=== PATIENT | male | born 1960 | race Caucasian/White ===

== ENCOUNTER 2021-12-02 14:09 | Emergency (ER) | payer MEDICARE, BC, SELFPAY ==
--- NOTE | ~2021-12-02 | XR_ITS ---
EXAMINATION: XR sacrum coccyx min 2V DATE: 12/02/2021 14:59 INDICATION: Tailbone pain post fall TECHNIQUE: AP, angled AP and lateral views of the sacrum and coccyx were obtained. COMPARISON: None. FINDINGS: Alignment is normal. Sacral arches appear intact. Age-indeterminate L4 burst fracture with two thirds central vertebral body height loss and with 3 mm retropulsion along the cephalad aspect of the poste rior wall. Mild osteoarthritis at the bilateral acromioclavicular joints. Atherosclerotic calcificati ons and a few phleboliths in the pelvis. IMPRESSION: 1. Age-indeterminate L4 burst fracture with 2 to central vertebral body height loss and 3 mm retropul edward. 2. Mild bilateral sacral iliac osteoarthritis with no evident acute osseous abnormality in the sacrum or coccyx. Reviewed, dictated and finalized at location A. IMPRESSION: 1. Age-indeterminate L4 burst fracture with 2 to central vertebral body height loss and 3 mm retropulsion. 2. Mild bilateral sacral iliac osteoarthritis with no evident acute osseous abn ormality in the sacrum or coccyx.
[2021-12-02 14:24] VITALS: BP 148/88; PULSE 80; RESP 16; TEMP 36.9; O2SAT 100
--- NOTE | 2021-12-02 14:57 | ED.BACK ---
HPI - Back Pain/Injury General Chief Complaint: Back Pain/Injury Stated Complaint: Fall Injury/Low Back Time Seen by Provider: 12/02/21 15:06 Source: patient Mode of arrival: wheelchair Limitations: no limitations History of Present Illness HPI Narrative: 60-year-old male presented for complaint of tailbone pain and mid low back pain since injury yesterday. He states he tried to change a light bulb when he fell backwards from ground level, landing on the tailbone on hardwood floor. He denies hitting his head or LOC, dizziness, denies numbness, tingling, or weakness of the lower extremities. Pain does not radiate to the lower extremities. Related Data Home Medications Medication Instructions Recorded Confirmed gabapentin 300 mg capsule 300 mg PO DAILY 12/02/21 12/02/21 hydrocodone 5 mg-acetaminophen 325 1 tablet PO Q6-8H PRN Pain 12/02/21 12/02/21 mg tablet labetalol 100 mg tablet 100 mg PO DAILY 12/02/21 12/02/21 omeprazole 20 mg capsule,delayed 20 mg PO DAILY 12/02/21 12/02/21 release rivaroxaban 20 mg tablet (Xarelto) 20 mg PO DAILY 12/02/21 12/02/21 Allergies Allergy/AdvReac Type Severity Reaction Status Date / Time No Known Allergies Allergy Verified 12/02/21 14:34 Review of Systems Review of Systems: CONSTITUTIONAL: Denies body aches, fever, chills EYES: Denies visual changes CARDIOVASCULAR: Denies chest pain, palpitations, or edema. RESPIRATORY: Denies cough or dyspnea. GASTROINTESTINAL: Denies abdominal pain, nausea, vomiting, or diarrhea. SKIN: Denies rash, itching, or wounds. MUSCULOSKELETAL: reports back pain NEUROLOGIC: Denies headache, numbness, tingling, or weakness. All systems reviewed & are unremarkable except as noted in HPI and below PMFSH Comments At time of signature, I have reviewed and agree with nursing past medical, surgical, social and family history unless otherwise noted. Please see nursing chart for further information. There is no relevant family history pertinent to the presenting complaint Exam Narrative: GENERAL: chronically ill appearing, frail, thin, no acute distress HEAD: Normocephalic, atraumatic. EYES: conjunctivae clear NECK: Supple. full ROM CHEST: Speaks in full sentences. No respiratory distress. HEART: Regular rate and rhythm. Normal and equal peripheral pulses. MUSC: Vertebral point tenderness to L4 area, no bruising. BLEs with normal strength and sensation, normal range of motion. No open wounds or obvious deformity; pulse palpable and equal bilaterally, skin warm, dry, pink. Capillary refill less than 3 seconds. Gait unsteady. Wheelchair. SKIN: Warm, dry, no rash. NEURO: Alert and oriented x3. Slow to respond Course Course Emergency Course: Patient is aware of diagnosis, understands and agrees to treatment plan. Anticipatory guidance given. Patient agrees to follow-up as directed and is aware of reasons to seek care at the emergency department. Portions of this record may have been created with voice recognition software Level of Care: Express Care Visit Vital Signs Vital signs: Vital Signs Temperature 98.4 F 12/02/21 14:24 Pulse Rate 80 12/02/21 14:24 Respiratory Rate 16 12/02/21 14:24 Blood Pressure 148/88 H 12/02/21 14:24 Pulse Oximetry 100 12/02/21 14:24 Oxygen Delivery Room Air 12/02/21 14:24 Temperature 98.4 F 12/02/21 14:24 Pulse Rate 80 12/02/21 14:24 Respiratory Rate 16 12/02/21 14:24 Blood Pressure 148/88 H 12/02/21 14:24 Pulse Oximetry 100 12/02/21 14:24 Oxygen Delivery Room Air 12/02/21 14:24 Reviewed Transfer Transfered to: [facility] Transportation: Other (private vehicle) Transfer rationale: Pt is agreeable to transfer. Requests transfer to [facility] via private vehicle. Risks of transportation reviewed with pt including injury, worsening of condition and . v/u. DTR will be driving pt; Report called to hospital, spoke with Marcie LOPEZ, Dr Phil de jesus
== END 2021-12-02 16:00 | disposition short-term general hospital (02) ==
PROVIDERS: Emergency Provider Nurse Practitioner Family; PCP Family Medicine
DX: S32.041A Stable burst fracture of fourth lumbar vertebra, initial encounter for closed fracture (principal); W18.30XA Fall on same level, unspecified, initial encounter; I10 Essential (primary) hypertension; K21.9 Gastro-esophageal reflux disease without esophagitis; Z85.118 Personal history of other malignant neoplasm of bronchus and lung; Z85.841 Personal history of malignant neoplasm of brain
CPT/HCPCS: 72220; 99213; G0463

== ENCOUNTER 2021-12-02 17:44 | Emergency (ER) | payer MEDICARE, BC, SELFPAY ==
--- NOTE | ~2021-12-02 | CT_ITS ---
EXAMINATION: CT lumbar spine wo con DATE: 12/02/2021 18:44 INDICATION: burst fracture L4 . TECHNIQUE: Computed tomography (CT) of the lumbar spine was performed without intravenous contrast. A utomated exposure control and iterative reconstruction technique were employed. The dose-length produ ct was 214.23 mGy-cm. COMPARISON: X-ray sacrum and coccyx, same date. FINDINGS: Spherical peripherally calcified mass in the right renal hilum. Punctate nonobstructive cliff culi at the left kidney. Atherosclerotic calcifications. Decreased bone mineral density. L4 vertebral body fracture, involving the superior endplate, anterior cortex, and posterior cortex, with minimal 2 mm retropulsion. No significant central canal stenosis. 5 nonrib-bearing lumbar-type vertebral bodi es. Pedicles intact. Normal vertebral body alignment. Vertebral body heights preserved. Disc spaces m aintained. Normal facets and posterior elements. IMPRESSION: Moderate L4 burst fracture with minimal retropulsion and no significant central canal stenosis. Calci fied right renal artery aneurysm. Reviewed, dictated and finalized at location K. IMPRESSION: Moderate L4 burst fracture with minimal retropulsion and no significant central canal stenosis. Calcified right renal artery aneurysm.
[2021-12-02 17:50] VITALS: BP 156/92; PULSE 78; RESP 16; TEMP 36.9; O2SAT 97
--- NOTE | 2021-12-02 18:03 | ED.BACK ---
HPI - Back Pain/Injury General Chief Complaint: Fall Stated Complaint: CAT scan Time Seen by Provider: 12/02/21 17:53 History of Present Illness HPI Narrative: Pt fell yesterday and landed hard on buttocks. Pt complains of pain across his low back and into his upper thighs bilaterally. Pt has peripheral neuropathy so always has numbness to his legs so hasn't noticed much different. Pt denies issues with his bladder or bowels. Pt seen at [facility] and had plain film x rays. Pt told to go to ER for more advanced imaging. Related Data Home Medications Medication Instructions Recorded Confirmed gabapentin 300 mg capsule 300 mg PO DAILY 12/02/21 12/02/21 hydrocodone 5 mg-acetaminophen 325 1 tablet PO Q6-8H PRN Pain 12/02/21 12/02/21 mg tablet labetalol 100 mg tablet 100 mg PO DAILY 12/02/21 12/02/21 omeprazole 20 mg capsule,delayed 20 mg PO DAILY 12/02/21 12/02/21 release rivaroxaban 20 mg tablet (Xarelto) 20 mg PO DAILY 12/02/21 12/02/21 Allergies Allergy/AdvReac Type Severity Reaction Status Date / Time No Known Allergies Allergy Verified 12/02/21 18:21 Review of Systems Review of Systems: All systems reviewed & are unremarkable except as noted in HPI and below Exam Const: General: healthy appearing Nutritional Appearance: well nourished Orientation/consciousness: patient oriented x3 Limitations: no limitations Eyes: EOM: EOMs intact bilaterally Neck: Neck: normal visual inspection and no lymphadenopathy Chest: Chest palpation & inspection: normal inspection of the chest and abnormal inspection of the chest Resp: Effort & Inspection: normal respiratory effort Auscultation: clear to auscultation bilaterally Cardio: Rate: regular rate Rhythm: regular rhythm GI: GI Palp: Yes Soft to palpation Auscultation: normal bowel sounds Back/Spine/Pelvis: Other: tender across low back to paolpation Skin: General skin exam: normal color Rashes: no rashes Wounds: no wounds Neuro: General: patient oriented x3, moves all extremities, no focal motor deficits and CN's II-XI intact bilaterally Speech: normal speech Gait exam (Neuro): Normal gait present (antalgic) Other: strength 5/5 lower extremities b/l Extrem: General: no clubbing, cyanosis or edema Psych: Mental Status: mental status grossly normal Affect: normal affect Attitude: cooperative Course Course Emergency Course: pt able to sit up and also able to ambulate with his cane. Pt says he feels much better and wants to go home. Vital Signs Vital signs: Vital Signs Temperature 98.5 F 12/02/21 17:50 Pulse Rate 78 12/02/21 17:50 Respiratory Rate 16 12/02/21 17:50 Blood Pressure 156/92 H 12/02/21 17:50 Pulse Oximetry 97 12/02/21 17:50 Oxygen Delivery Room Air 12/02/21 17:50 Temperature 98.5 F 12/02/21 17:50 Pulse Rate 78 12/02/21 17:50 Respiratory Rate 16 12/02/21 17:50 Blood Pressure 156/92 H 12/02/21 17:50 Pulse Oximetry 97 12/02/21 17:50 Oxygen Delivery Room Air 12/02/21 17:50 Discharge Plan Discharge Clinical Impression: Burst fracture of lumbar vertebra Patient Disposition: Home, Self-Care Condition: Improved Instructions: Antibiotic Form, Vertebroplasty (DC), Procedures for Compression Fractures of the Spine (DC) Prescriptions: New hydrocodone-acetaminophen 5-325 mg tablet 1 tablet PO Q4H PRN (Reason: pain) Qty: 14 0RF No Action hydrocodone-acetaminophen 5-325 mg tablet 1 tablet PO Q6-8H PRN (Reason: Pain) gabapentin 300 mg capsule 300 mg PO DAILY omeprazole 20 mg capsule,delayed release(DR/EC) 20 mg PO DAILY labetalol 100 mg tablet 100 mg PO DAILY Xarelto 20 mg tablet 20 mg PO DAILY Follow-up/Referrals: Harms,Samuel Sanchez M.D. [Primary Care Provider] -
--- NOTE | 2021-12-02 18:34 | PC.NURSE ---
PT IS IN CT AT THIS TIME. SISTER HAS STEPPED OUTSIDE TO MAKE CALLS.
[2021-12-02] MEDS: HYDROmorphone HCL INJ (*CRX) 2 MG/ML VIAL 1 MG IM (18:48)
[2021-12-02 19:25] VITALS: BP 142/86; PULSE 74; RESP 18; O2SAT 98
== END 2021-12-02 19:34 | disposition home or self-care (01) ==
PROVIDERS: Emergency Provider Emergency Medicine; PCP Family Medicine
DX: S32.001A Stable burst fracture of unspecified lumbar vertebra, initial encounter for closed fracture (principal); W19.XXXA Unspecified fall, initial encounter
CPT/HCPCS: 72131; 96372; 99284; J1170

== ENCOUNTER 2021-12-12 16:03 | Outpatient (CLI) | payer OTHER, BC, SELFPAY ==
--- NOTE | ~2021-12-12 | CT_ITS ---
EXAMINATION: CT brain wo con DATE: 12/12/2021 16:20 INDICATION: Altered mental status. Fall. TECHNIQUE: Computed tomography (CT) of the head was performed without intravenous contrast. The mA wa s adjusted according to patient size. Iterative reconstruction technique was employed. The dose-lengt h product was 605.33 mGy-cm. COMPARISON: None FINDINGS: There are old infarcts involving the bilateral basal ganglia. There is chronic encephalomal acia in the left occipital lobe with changes of overlying craniotomy. There are scattered areas of lo w attenuation in the cerebral white matter. There is no intracranial hemorrhage, acute infarction, or abnormal intracranial mass lesion. There is ex vacuo dilatation of left lateral ventricle. The orbit s are normal. There is mild mucosal thickening in the paranasal sinuses. There are bilateral mastoid effusions. IMPRESSION: 1. Old infarcts in the bilateral basal ganglia. Chronic encephalomalacia in left occipital lobe. 2. Extensive nonspecific cerebral white matter disease, which likely represents chronic small vessel ischemic disease. Reviewed, dictated and finalized at location A. IMPRESSION: 1. Old infarcts in the bilateral basal ganglia. Chronic encephalomalacia in lef t occipital lobe. 2. Extensive nonspecific cerebral white matter disease, which likely represents chronic small vessel ischemic disease.
== END 2021-12-12 16:04 | disposition home or self-care (01) ==
PROVIDERS: Visit Provider Internal Medicine
DX: Z91.81 History of falling (principal); Z86.73 Personal history of transient ischemic attack (TIA), and cerebral infarction without residual deficits; G93.89 Other specified disorders of brain; R90.82 White matter disease, unspecified
CPT/HCPCS: 70450

== ENCOUNTER 2021-12-15 13:32 | Inpatient (IN) | payer MEDICARE, BC, SELFPAY ==
--- NOTE | ~2021-12-15 | CT_ITS ---
EXAMINATION: CT brain wo con DATE: 12/15/2021 14:23 INDICATION: Acute mental status. Brain cancer. TECHNIQUE: Computed tomography (CT) of the head was performed without intravenous contrast. Sagittal and coronal reconstructions were performed. The mA was adjusted according to patient size. Iterative reconstruction technique was employed. The dose-length product was 681.00 mGy-cm. COMPARISON: head CT dated 12/12/21 FINDINGS: Again seen are regions of encephalomalacia consistent with chronic infarcts at the bilateral basal ga nglia. Distal chronic encephalomalacia in the left occipital lobe which is overlying craniotomy presu med with resection of a reported prior brain cancer. There is associated mild ex vacuo dilation of th e occipital horn of the left lateral ventricle. There is moderate scattered white matter hypoattenuat ion consistent with chronic small vessel ischemic disease. No acute intracranial hemorrhage, acute in farction or abnormal extra axial fluid collection. No mass/mass effect. Large mucous percent cyst at the floor of the right maxillary sinus. The orbits are normal. Persistent small bilateral mastoid eff usions. IMPRESSION: 1. No acute intracranial process. 2. Chronic encephalomalacia in the left occipital lobe with overlying craniotomy which may relate to resection of a reported prior brain cancer. Correlate with clinical/surgical history. 3. Old lacunar infarcts at the bilateral basal ganglia and more diffuse moderate scattered white skyler er hypoattenuation consistent with chronic small vessel ischemic disease. Reviewed, dictated and finalized at location A. IMPRESSION: 1. No acute intracranial process. 2. Chronic encephalomalacia in the left occipital lobe with overlying craniotom y which may relate to resection of a reported prior brain cancer. Correlate wit h clinical/surgical history. 3. Old lacunar infarcts at the bilateral basal ganglia and more diffuse moderat e scattered white matter hypoattenuation consistent with chronic small vessel i schemic disease.
--- NOTE | ~2021-12-15 | CT_ITS ---
EXAMINATION: CT chest abdomen pelvis wo con DATE: 12/16/2021 16:31 INDICATION: Abnormal liver function tests. Lung cancer. TECHNIQUE: Computed tomography (CT) of the chest, abdomen, and pelvis was performed without intraveno us contrast. Automated exposure control and iterative reconstruction technique were employed. The dos e-length product was 285.92 mGy-cm. COMPARISON: None FINDINGS: CHEST CT: There are changes of right upper lobectomy. There is a 13 mm groundglass nodule with cavitation in ri ght lower lobe. There is scarring at right lung apex and in paramediastinal right lung. There is mild scarring at left lung apex. There is a 15 mm nodule in left upper lobe. There are small groundglass opacities in left upper lobe. No pleural effusion. There is an aberrant right subclavian artery. Ther e is ectasia of ascending aorta measuring 4.2 cm. The heart size is normal. There are coronary artery calcifications. No pericardial effusion. There is a left subclavian port with tip at superior cavoat rial junction. There is a 10 x 12 mm left lower paratracheal lymph node. ABDOMEN/PELVIS CT: The liver, gallbladder, spleen, pancreas, adrenal glands, and kidneys are normal. Hyperdense material in the bladder may be contrast from the recent MRI. There are no dilated loops of bowel. The appendi x is not visualized. There are no pathologically enlarged lymph nodes. There is no free intraperitone al fluid. There is a 3.2 cm cyst in left inguinal canal. There is an 11 mm rim calcified saccular ane urysm of right renal artery. There is a chronic burst fracture of L4. IMPRESSION: 1. 15 mm left upper lobe pulmonary nodule, which is indeterminate for malignancy. Comparison with out side imaging is recommended. 2. Mildly enlarged mediastinal lymph node, which is indeterminate for metastatic disease. Reviewed, dictated and finalized at location B. IMPRESSION: 1. 15 mm left upper lobe pulmonary nodule, which is indeterminate for malignanc y. Comparison with outside imaging is recommended. 2. Mildly enlarged mediastinal lymph node, which is indeterminate for metastati c disease.
--- NOTE | ~2021-12-15 | XR_ITS ---
EXAMINATION: XR chest 1V Exam Date/Time: 12/15/2021 14:20 CDT HISTORY: ams, HX OF BRAIN CANCER Comparison: None available. RESULT: Lines, tubes, and devices: Left chest port terminating at the cavoatrial junction. Surgical clips ov er the mediastinum and right hilum. Right upper lung suture line. Lungs and pleura: No pneumothorax or focal consolidation. Surgical change with pleural scarring/thic kening in the right upper lung. Cardiomediastinal silhouette: Unremarkable. Other: No acute osseous or upper abdominal finding. IMPRESSION: No acute cardiopulmonary process. Reviewed, dictated and finalized at location K.
--- NOTE | ~2021-12-15 | MR_ITS ---
EXAMINATION: MR brain/brain stem wo/w con DATE: 12/16/2021 09:19 INDICATION: Altered mental status. TECHNIQUE: Magnetic resonance imaging (MRI) of the brain and brainstem was performed without and with 9 mL MultiHance intravenous contrast. COMPARISON: Head CT 12/15/2021 FINDINGS: There is chronic encephalomalacia in left occipital lobe with overlying changes of cranioto my. There are scattered areas of nonspecific increased T2-weighted signal intensity in the cerebral w gabi matter. There are old infarcts in the bilateral basal ganglia. There is no intracranial hemorrha ge, acute infarction, or abnormal intracranial mass lesion. There is ex vacuo dilatation of the later al ventricles. There are no pathologically enlarged lymph nodes. There are mucous retention cysts in the maxillary sinuses. There are bilateral mastoid effusions. IMPRESSION: 1. Chronic encephalomalacia in left occipital lobe with overlying changes of craniotomy. 2. Old infarcts in the bilateral basal ganglia. 3. Extensive nonspecific cerebral white matter disease, which likely represents chronic small vessel ischemic disease. Reviewed, dictated and finalized at location B. IMPRESSION: 1. Chronic encephalomalacia in left occipital lobe with overlying changes of cr aniotomy. 2. Old infarcts in the bilateral basal ganglia. 3. Extensive nonspecific cerebral white matter disease, which likely represents chronic small vessel ischemic disease.
[2021-12-15 13:35] VITALS: BP 140/88; PULSE 89; RESP 18; TEMP 36.5; O2SAT 98
--- NOTE | 2021-12-15 13:50 | ECG_ITS ---
Measurements Intervals [place] Rate: 90 P: 78 AL: 151 QRS: -45 QRSD: 81 T: 73 QT: 348 QTc: 428 Interpretive Statements SINUS RHYTHM BASELINE ARTIFACT POSSIBLE RIGHT ATRIAL ENLARGEMENT POSSIBLE LEFT ATRIAL ENLARGEMENT POSSIBLE RIGHT VENTRICULAR CONDUCTION DELAY LEFT ANTERIOR FASCICULAR BLOCK BORDERLINE ECG NO PREVIOUS ECG AVAILABLE FOR COMPARISON Electronically Signed On 12-15-2021 16:00:20 CDT by Parker Snell M.D.
[2021-12-15 13:51] VITALS: BMI 16.2
--- NOTE | 2021-12-15 14:12 | ED.AMS ---
HPI - Altered Mental Status General Chief Complaint: Altered Mental Status <Shira Meneses PA-C - Last Filed: 12/15/21 19:30> Stated Complaint: ams, slow to respond and give inaccurate answers <Shira Meneses PA-C - Last Filed: 12/15/21 19:30> Time Seen by Provider: 12/15/21 13:50 <SUMEET Sandra Last Filed: 12/15/21 19:30> Source: patient, family and old records reviewed <SUMEET Sandra Last Filed: 12/15/21 19:30> Mode of arrival: EMS <SUMEET Sandra Last Filed: 12/15/21 19:30> Limitations: altered mental status <SUMEET Sandra Last Filed: 12/15/21 19:30> History of Present Illness HPI narrative: Patient is a 60 y/o male who presents to the ED via EMS with report of AMS. Family assisted in providing patient's information. They report patient had a fall 2 weeks ago and sustained a burst fracture to his L4. He was evaluated here and at [facility]. He has been at [facility] for the last 1 week. Family reports over the last 2 weeks, patient has had a rapid cognitive decline. Family notes prior to the fall, patient was living independently and mentally alert and oriented x4, but he had stopped caring for himself as well, poor hygiene, not cleaning the house as much. Currently, patient A&O X 1. He was reportedly sent from the rehab facility today due to being slow to respond, answering questions inappropriately, repeatedly stating NO. Patient denies any pain, chest pain, difficulty breathing, abdominal pain. Patient has a history of brain cancer which was previously removed via craniotomy. Also has a history of lung cancer with previous lung surgery, recurrence of lung cancer diagnosed around 1 year ago. Patient does not wish to receive further treatment. 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 <SUMEET Sandra Last Filed: 12/15/21 19:30> Related Data Home Medications: Home Medications Medication Instructions Recorded Confirmed gabapentin 300 mg capsule 300 mg PO HS 12/02/21 12/15/21 hydrocodone 5 mg-acetaminophen 325 1 tablet PO Q6-8H PRN Pain 12/02/21 12/15/21 mg tablet labetalol 100 mg tablet 100 mg PO DAILY 12/02/21 12/15/21 omeprazole 20 mg capsule,delayed 20 mg PO DAILY 12/02/21 12/15/21 release rivaroxaban 20 mg tablet (Xarelto) 20 mg PO DAILY 12/02/21 12/15/21 acetaminophen 325 mg tablet 325 mg PO PRN PRN Pain 12/15/21 12/15/21 amlodipine 5 mg tablet 5 mg PO DAILY 12/15/21 12/15/21 pantoprazole 20 mg tablet,delayed 20 mg PO DAILY 12/15/21 12/15/21 release polyethylene glycol 3350 17 g PO DAILY 12/15/21 12/15/21 senna-docusate sodium 1 tablet PO DAILY 12/15/21 12/15/21 sennosides 8.6 mg tablet (senna) 8.6 mg PO DAILY 12/15/21 12/15/21 <SUMEET Sandra Last Filed: 12/15/21 19:30> Allergies/Adverse Reactions: Allergies Allergy/AdvReac Type Severity Reaction Status Date / Time No Known Allergies Allergy Verified 12/02/21 18:21 <Shira Meneses PA-C - Last Filed: 12/15/21 19:30> Review of Systems Review of Systems: CONSTITUTIONAL: Denies fever, chills, or sweats. CARDIOVASCULAR: Denies chest pain. RESPIRATORY: Denies cough or dyspnea. GASTROINTESTINAL: Denies abdominal pain, nausea, vomiting. MUSCULOSKELETAL: Denies back pain. NEUROLOGIC: Reports AMS. Denies headache, numbness, or focal weakness. 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
[2021-12-15 14:17] LABS: Basophils Absolute Auto 0.1 K/mm3 (0.0-0.1); Basophils Percent Auto 0.9 % (0.2-1.2); Eosinophils Absolute Auto 0.1 K/mm3 (0-0.3); Eosinophils Percent Auto 0.4 % (0-4.4); Hematocrit 44.3 % (42.0-52.0); Hemoglobin 14.1 g/dL (14.0-18.0); Immature Granulocyte Absolute 0.06 K/mm3 (0.00-0.031); Immature Granulocyte Percent A 0.4 % (0-0.5); Lymphocytes Absolute Auto 2.55 K/mm3 (0.9-3.2); Lymphocytes Percent Auto 18.6 % (18.3-44.2); Mean Corpuscular HGB Conc 31.8 g/dl (32-36); Mean Corpuscular Hemoglobin 30.5 pg (26-34); Mean Corpuscular Volume 95.9 fl (80-100); Mean Platelet Volume 9.9 fl (7.4-10.4); Monocytes Absolute Auto 1.1 K/mm3 (0.1-0.6); Monocytes Percent Auto 8.1 % (2.6-8.5); Neutrophils Absolute Auto 9.8 K/mm3 (1.3-6.7); Neutrophils Percent Auto 71.6 % (45.5-73.1); Platelet Count Result 364 k/mm3 (150-375); Red Blood Count 4.62 M/mm3 (4.6-6.20); Red Cell Distribution Width 13.1 % (11.5-14.5); White Blood Count 13.7 K/mm3 (4.5-10.0)
[2021-12-15 14:29] LABS: INR 2.8; Prothrombin Time 28.3 Seconds (11.1-14.7)
[2021-12-15 14:30] LABS: Partial Thromboplastin Time 42.4 SECONDS (22.3-36.8)
[2021-12-15 14:32] LABS: Add Urine Microscopic? YES; Amorphous Sediment Urine Moderate; Appearance Urine Cloudy (Clear); Bilirubin Urine Negative (Negative); Blood Urine Negative (Negative); Color Urine Yellow (Yellow); Glucose Urine UA Negative (Negative); Ketones Urine Negative (Negative); Leukocyte Esterase Ur Negative LEU/UL (Negative); Mucus Urine Rare /lpf; Nitrate Urine Negative (Negative); Protein Urine Negative (Negative); Specific Grav Ur 1.014 (1.001-1.035); Squamous Epithelial Cell Urine Rare /hpf (Few); Urobilinogen Urine Negative mg/dL (<2.0)
[2021-12-15 14:34] LABS: Alanine Aminotransferase 30 U/L (6-50); Albumin Level 4.6 g/dL (3.5-5.1); Alkaline Phosphatase 138 U/L (38-126); Anion Gap 10 mmol/L (8-16); Aspartate Amino Transferase 31 U/L (17-59); Bilirubin,Total 0.4 mg/dL (0.2-1.3); Blood Urea Nitrogen 26 mg/dL (9-20); Calcium 10.3 mg/dL (8.4-10.2); Carbon Dioxide 30 mmol/L (22-30); Chloride 100 mmol/L (98-107); Estimated Glomerular Filt Rate > 60; Glucose 110 mg/dL (65-110); Potassium 4.2 mmol/L (3.4-5.0); Sodium 140 mmol/L (137-145)
[2021-12-15 14:44] LABS: Troponin I < 0.012 ng/mL (0.000-0.034)
[2021-12-15 15:58] LABS: Ammonia < 9 umol/L (9-30)
[2021-12-15 16:01] LABS: Lactic Acid Reflex 1.6 mmol/L (0.7-2.0)
[2021-12-15 16:30] LABS: Thyroid Stimulating Hormone 0.785 uIU/mL (0.465-4.680)
[2021-12-15 17:39] LABS: Glucose Point of Care 122 mg/dl (65-105)
--- NOTE | 2021-12-15 19:00 | PM.IMHP ---
H&P: HPI History of Present Illness Date/Time: 12/15/21 19:00 Chief Complaint: Altered mental status. Narrative: This is a 60-year-old with hypertension, GERD, right internal jugular thrombus on anticoagulation, stroke, and history of non-small cell cancer with metastases to the brain who presented to the ED via EMS from [facility] for evaluation of altered mental status. While he is awake and alert he is unable to provide any history as he does not seem to understand the questions being asked of him. He said a few words while I was in the room with him but none of them were meaningful or appropriate to what we were discussing. He was sitting up in bed the entire time that I was talking to him and he seems to listen to what I was saying although he did not answer any questions. As such all of the following history is obtained via a review of his electronic medical records as well as from discussions with his siblings. The patient lives alone in his own home and he was independent of activities of daily living up until recently when he sustained an L4 burst fracture after he fell changing a light bulb. He was admitted at [facility] and no surgical intervention was indicated. He was placed in an LSO brace and discharged to [facility] on 12/07/2021. He has been participating though rehab notes over the last several days indicate that his thought processes and reaction times have slowed down significantly. Family members wanted him brought in today for evaluation however they do indicate that recently they had been concerned about his health as he had not been keeping his house in good shape and his hygiene had become poor. They go on to say that his lung cancer has returned and he opted out of further treatment though apparently this was almost a year ago. In any event, his vital signs were stable on arrival to the emergency department. His labs are relatively unremarkable aside from a WBC of 13.7. Chest x-ray and UA were without evidence of infection. Brain CT showed old infarcts and chronic encephalomalacia though no acute intracranial processes. He is being admitted in this setting for further evaluation. Review of Systems Review of Systems: Unable to obtain given altered mental status. 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 Code status: Full code for now however siblings do not feel that he would want to be resuscitated. Smoking status: Former smoker Alcohol intake: unknown Substance use: unknown Meds Home Medications and Allergies Home Medications Medication Instructions Recorded Confirmed Type gabapentin 300 mg capsule 300 mg PO HS 12/02/21 12/15/21 History hydrocodone 5 mg-acetaminophen 325 1 tablet PO Q6-8H PRN Pain 12/02/21 12/15/21 History mg tablet labetalol 100 mg tablet 100 mg PO DAILY 12/02/21 12/15/21 History omeprazole 20 mg capsule,delayed 20 mg PO DAILY 12/02/21 12/15/21 History release rivaroxaban 20 mg tablet (Xarelto) 20 mg PO DAILY 12/02/21 12/15/21 History acetaminophen 325 mg tablet 325 mg PO PRN PRN Pain 12/15/21 12/15/21 History amlodipine 5 mg tablet 5 mg PO DAILY 12/15/21 12/15/21 History pantoprazole 20 mg tablet,delayed 20 mg PO DAILY 12/15/21 12/15/21 History release polyet
[2021-12-15 19:59] VITALS: BP 135/87; PULSE 95; RESP 16; TEMP 36.9; O2SAT 98
[2021-12-15 20:00] VITALS: PULSE 91
[2021-12-15 20:02] VITALS: BMI 16.2
[2021-12-15 20:16] LABS: Glucose Point of Care 129 mg/dl (65-105)
--- NOTE | 2021-12-15 21:40 | ADMGEN ---
This patient, Paulo Blanco, was admitted to Medical [facility] at 1930. Patient/family oriented to hospital policies and general routines including ID bracelet, bed and alarms, visiting hours, pain management, procedures, bathroom and other care routines, personal items, smoking policy, room service/diet, and visiting hours. Information on how to activate the Rapid Response Team has been discussed. Patient/Family are encouraged to report perceived risks to care and to ask questions if they do not understand what they are told or what they should do.
[2021-12-15 23:43] VITALS: PULSE 94
--- NOTE | 2021-12-15 23:45 | PC.NURSE ---
Varsha Sosa MD notified at 2340 that pt is pulling at lines and will not tolerate having fluids running through his IV, was okay with this.
[2021-12-16] VITALS (9 sets, daily range): BP systolic 116–130; BP diastolic 71–95; PULSE 80–107; RESP 14–16; TEMP 36.4–36.8; O2SAT 91–99; BMI 16.2
[2021-12-16 05:59] LABS: Hemoglobin 13.5 g/dL (14.0-18.0); Mean Corpuscular HGB Conc 32.9 g/dl (32-36); Mean Corpuscular Hemoglobin 30.1 pg (26-34); Mean Corpuscular Volume 91.3 fl (80-100); Mean Platelet Volume 9.9 fl (7.4-10.4); Platelet Count Result 360 k/mm3 (150-375); Red Blood Count 4.49 M/mm3 (4.6-6.20); Red Cell Distribution Width 12.7 % (11.5-14.5)
[2021-12-16 06:11] LABS: Anion Gap 8 mmol/L (8-16); Blood Urea Nitrogen 24 mg/dL (9-20); CRP 2.7 mg/dL (<1.0); Calcium 10.3 mg/dL (8.4-10.2); Carbon Dioxide 28 mmol/L (22-30); Chloride 102 mmol/L (98-107); Estimated CRCL calculation 70 ml/min; Estimated Glomerular Filt Rate > 60; Glucose 103 mg/dL (65-110); Magnesium 2.2 mg/dL (1.6-2.3); Sodium 138 mmol/L (137-145)
[2021-12-16 07:14] LABS: Folic Acid 15.5 ng/mL (2.76->20)
[2021-12-16 09:26] LABS: Erythrocyte Sedimentation Rate 14 mm/hr (0-20)
--- NOTE | 2021-12-16 09:50 | PC.NURSE ---
Patient refusing all meds this AM stating I am not taking those since you're not taking them either educated pt on medications and why he needed to take them, pt stated guess I'll just then attempted to re-educate. Pt still refusing.
--- NOTE | 2021-12-16 10:13 | PC.NURSE ---
RN walked by pt's room to find pt trying to get out of bed through the gap in the bed rails. Instructed pt to put feet back in bed and educated pt on why he cannot get up by himself but we would help get him to the restroom if he needed to go. He declined bathroom needs and said he is going wherever he wants educated pt on why he cannot roam freely throughout the hospital and would need someone to assist him to walk the hallways. Pt continued to be resistant, I attempted to move patient's legs back in the bed and patient began cussing stating who are you fucking fooling, fuck you at this time RN called another RN to assist with the patient. Patient visibly angry but was eventually able to be re-directed back to a comfortable position in bed. Chair pad placed under patient for alarm purposes as bed alarm is not working 100% correctly due to patient weight.
--- NOTE | 2021-12-16 13:01 | WPDNEURCNPN ---
Assessment and Plan Assessment and plan (1) Altered mental status: Qualifiers: Altered mental status type: unspecified Qualified Code(s): R41.82 - Altered mental status, unspecified Code(s): R41.82 - Altered mental status, unspecified Status: Acute (2) Non-small cell lung cancer metastatic to brain: Code(s): C34.90 - Malignant neoplasm of unspecified part of unspecified bronchus or lung; C79.31 - Secondary malignant neoplasm of brain Status: Acute (3) History of craniotomy: Code(s): Z98.890 - Other specified postprocedural states Status: Acute (4) Seizure disorder: Code(s): G40.909 - Epilepsy, unspecified, not intractable, without status epilepticus Status: Acute Plan 1 carcinoma of the lung 2 recent ground level fall with burst fracture of the vertebra 3 metastatic disease to the brain for ongoing confusion could very well be related to the underlying metastatic disease but will obtain the EEG to rule out the possibility of the persistent seizures for patient's brother who has power of prosecuting attorney they requested to be DNR is no reason to do the spinal fluid studies at this particular but only anticonvulsant would be prescribed because of the underlying metastatic disease that is Keppra 500 mg p.o. b.i.d. Consult date: 12/16/21 Reason for consult: change in the mental status HPI: Paulo Blanco is a 60 year old male admitted to the hospital through the emergency room where he was brought by EMS with complaints of acute changes in the mental status patient reportedly had a fall 2 weeks ago which resulted in the breast fracture to his L4 he was initially evaluated at [facility] and also he has wong at [facility] for the last 4 over the last 2 weeks patient has had a rapid cognitive decline he has been living independently awake alert and oriented x4 but recently has stopped caring for himself with resultant poor hygiene and at the time of initial evaluation in the emergency room he was awake alert oriented x1 he was sent to the ER from the rehab facility because of the inappropriate answers. Thatch does have ongoing history of carcinoma of the breast and has undergone craniotomy in the past he has also undergone surgery for the carcinoma of the lung and with recurrence diagnosed about 1 year ago. Has been taking gabapentin 300 mg daily labetalol 100 mg daily rivaroxaban 20 mg daily 3 in the past has burst fracture of the lumbar vertebra chronic anticoagulation therapy and as mentioned above non-small cell carcinoma of the lung with metastatic cyst to the brain and also thrombosis of right internal jugular vein. His currently everyday smoker. Initial vital signs in the emergency room were normal CBC also normal so as a basic metabolic panel with BUN of 26 his UA was negative INR was 2.8, initial CT scan of the head revealed no evidence of bleed but he was found to have encephalomalacia in the left occipital lobe with overlying craniotomy in addition to old lacunar infarct at the bilateral basal ganglia and white matter hypoattenuation general Review of Systems Review of Systems: All systems reviewed & are unremarkable except as noted in HPI and below PMFSH Past Medical History Medical History (Updated 12/16/21 @ 13:11 by Alverto Boggs MD) Burst fracture of lumbar vertebra Cerebrovascular accident Chronic anticoagulation Gastroesophageal reflux disease Hypertension 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
--- NOTE | 2021-12-16 13:12 | WPDNEURCNPN ---
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 Code status: Full code for now however siblings do not feel that he would want to be resuscitated. Smoking status: Former smoker Alcohol intake: unknown Substance use: unknown Spiritual care concerns: No Meds Home Medications and Allergies Home Medications Medication Instructions Recorded Confirmed Type gabapentin 300 mg capsule 300 mg PO HS 12/02/21 12/15/21 History hydrocodone 5 mg-acetaminophen 325 1 tablet PO Q6-8H PRN Pain 12/02/21 12/15/21 History mg tablet labetalol 100 mg tablet 100 mg PO DAILY 12/02/21 12/15/21 History omeprazole 20 mg capsule,delayed 20 mg PO DAILY 12/02/21 12/15/21 History release rivaroxaban 20 mg tablet (Xarelto) 20 mg PO DAILY 12/02/21 12/15/21 History acetaminophen 325 mg tablet 325 mg PO PRN PRN Pain 12/15/21 12/15/21 History amlodipine 5 mg tablet 5 mg PO DAILY 12/15/21 12/15/21 History pantoprazole 20 mg tablet,delayed 20 mg PO DAILY 12/15/21 12/15/21 History release polyethylene glycol 3350 17 g PO DAILY 12/15/21 12/15/21 History senna-docusate sodium 1 tablet PO DAILY 12/15/21 12/15/21 History sennosides 8.6 mg tablet (senna) 8.6 mg PO DAILY 12/15/21 12/15/21 History Allergies Allergy/AdvReac Type Severity Reaction Status Date / Time No Known Allergies Allergy Verified 12/02/21 18:21 Vital Signs Vital Signs - 24 hr 12/15/21 13:35 12/15/21 19:59 12/15/21 20:00 Temperature 36.5 C 36.9 C Pulse Rate 89 95 91 Respiratory Rate 18 16 Blood Pressure 140/88 135/87 Pulse Oximetry 98 98 Oxygen Delivery 12/15/21 20:00 12/15/21 23:43 12/16/21 04:00 Temperature Pulse Rate 94 90 Respiratory Rate Blood Pressure Pulse Oximetry Oxygen Delivery Room Air 12/16/21 06:29 Temperature 36.4 C Pulse Rate 89 Respiratory Rate 16 Blood Pressure 130/95 H Pulse Oximetry 99 Oxygen Delivery Results Labs CBC & Chem 7: 12/16/21 05:42 12/16/21 05:42 Labs: Short CBC 12/15/21 12/15/21 12/16/21 Range/Units 14:05 14:05 05:42 WBC Cancelled 13.7 H 10.0 Hgb Cancelled 14.1 13.5 L Hct Cancelled 44.3 41.0 L Plt Count Cancelled 364 360 BMP 12/15/21 12/15/21 12/16/21 14:05 14:05 05:42 Sodium 140 Cancelled 138 Potassium 4.2 Cancelled 4.0 Chloride 100 Cancelled 102 Carbon Dioxide 30 Cancelled 28 BUN 26 H Cancelled 24 H Creatinine 0.70 Cancelled 0.60 L Glucose 110 Cancelled 103 Calcium 10.3 H Cancelled 10.3 H Cardiac Enzymes 12/15/21 Range/Units 14:05 Troponin I < 0.012 (0.000-0.034) ng/mL Liver Function 12/15/21 12/15/21 Range/Units 14:05 14:05 Total Bilirubin 0.4 Cancelled (0.2-1.3) mg/dL AST 31 Cancelled (17-59) U/L ALT 30 Cancelled (6-50) U/L Alkaline Phosphatase 138 H Cancelled (38-126) U/L Albumin 4.6 Cancelled (3.5-5.1) g/dL Urine 12/15/21 Range/Units 14:05 Urine Color Yellow (Yellow) Urine Appearance Cloudy H (Clear) Urine pH 9.0 (5.0-9.0) Ur Specific [place] 1.014 (1.001-1.035) Urine Protein Negative (Negative) mg/dL Urine Glucose (UA) Negative (Negative) mg/dL
--- NOTE | 2021-12-16 13:19 | PC.NURSE ---
Patient still uncooperative with staff, starts cussing when re-directed. Told RN i'd love to kick the shit out of you
[2021-12-16] MEDS: PANTOPRAZOLE 40 MG TABLET PO (15:26)
[2021-12-16] MEDS: LABETALOL HCL 100 MG TABLET PO (15:26)
[2021-12-16] MEDS: RIVAROXABAN 20 MG TABLET PO (15:26)
[2021-12-16] MEDS: amLODIPine BESYLATE 5 MG TABLET PO (15:26)
[2021-12-16] MEDS: THIAMINE 500 MG/NS 100 ML 500 MG/100 ML BAG 200 MG IVPB ×2 (15:37→20:57)
--- NOTE | 2021-12-16 17:41 | PM.IMPN ---
Progress Note: A&P Assessment and Plan (1) Altered mental status: Qualifiers: Altered mental status type: unspecified Qualified Code(s): R41.82 - Altered mental status, unspecified Code(s): R41.82 - Altered mental status, unspecified Status: Acute Assessment and Plan: MRI unremarkable for any acute abnormality, full neuro consult pending Will check a thiamine level and treat with IV thiamine for possible Wernicke encephalopathy despite no history of alcohol use (2) Chronic anticoagulation: Code(s): Z79.01 - salvage determiner (current) use of anticoagulants Status: Acute Assessment and Plan: Continue rivaroxaban for history of right IJ thrombus. (3) Non-small cell lung cancer metastatic to brain: Code(s): C34.90 - Malignant neoplasm of unspecified part of unspecified bronchus or lung; C79.31 - Secondary malignant neoplasm of brain Status: Acute Assessment and Plan: Active lung nodules for non-small cell lung cancer noted, patient has refused all treatments (4) Hypertension: Code(s): I10 - Essential (primary) hypertension Status: Acute Assessment and Plan: Stable (5) Burst fracture of lumbar vertebra: Qualifiers: Encounter type: sequela Fracture type: closed Qualified Code(s): S32.001S - Stable burst fracture of unspecified lumbar vertebra, sequela Code(s): S32.001A - Stable burst fracture of unspecified lumbar vertebra, initial encounter for closed fracture Status: Acute Assessment and Plan: Stable Plan DVT prophylaxis with SCDs GI prophylaxis with PPI Code status full code Subjective Date/time seen: 12/16/21 17:41 Interval history: Patient is quite confused and tangential, unable to get a history from the patient. No events noted, no fevers. Review of Systems Review of Systems: ROS unobtainable: Yes unobtainable due to mental status Exam Narrative: General: No acute distress, alert and oriented to self and situation only, short-term memory changes noted, cachectic HEENT: Atraumatic, normocephalic, mucous membranes moist CV: Regular rate and rhythm, S1, S2 Lungs: Clear to auscultation bilaterally, no rales or crackles noted, no wheezes, good air entry Abdomen: Soft, nontender, nondistended Extremities: Significant muscle wasting noted in all 4 extremities Skin: No rashes noted, no lesions or wounds seen Objective Data Vital Signs Vital Signs: Vital Signs - 24 hr 12/15/21 19:59 12/15/21 20:00 12/15/21 20:00 Temperature 98.4 F Pulse Rate 95 91 Respiratory Rate 16 Blood Pressure 135/87 Pulse Oximetry 98 Oxygen Delivery Room Air 12/15/21 23:43 12/16/21 04:00 12/16/21 06:29 Temperature 97.6 F Pulse Rate 94 90 89 Respiratory Rate 16 Blood Pressure 130/95 H Pulse Oximetry 99 Oxygen Delivery 12/16/21 14:00 12/16/21 15:26 12/16/21 08:00 Temperature 98.2 F Pulse Rate 83 85 Respiratory Rate 14 Blood Pressure 127/83 Pulse Oximetry 98 Oxygen Delivery Room Air Intake/Output Intake/Output: Intake & Output 12/13/21 12/14/21 12/15/21 12/16/21 23:59 23:59 23:59 23:59 Intake Total 370 Balance 370 Meds/Results Medications: Active Medications Generic Name Dose Route Start Last Admin Trade Name Sita PRN Reason Stop Dose Admin Acetaminophen 325 mg 12/15/21 23:30 Acetaminophen 325 Mg Tablet PO Q6H PRN Pain 1-3 Hydrocodone Bitart/Acetaminophen 1 tab 12/15/21 23:30 Hydrocodone/Acetaminophen (*Crx) 5-325 Mg Tablet PO Q6-8H PRN Pain 4-6 Amlodipine Besylate 5 mg 12/16/21 09:00 12/16/21 15:26 Amlodipine Besylate 5 Mg Tablet PO 5 mg DAILY FER Administration Gabapentin 300 mg 12/16/21 21:00 Gabapentin 300 Mg Capsule PO HS FER Thiamine HCl 500 mg in 100 mls @ 200 mls/hr 12/16/21 15:00 12/16/21 16:15 IVPB Infused Q8HR FER Infusion Labetalol HCl 100 mg
[2021-12-16 22:08] LABS: Glucose Point of Care 164 mg/dl (65-105)
[2021-12-17] VITALS (10 sets, daily range): BP systolic 101–128; BP diastolic 71–74; PULSE 70–86; RESP 14–18; TEMP 36.4–36.6; O2SAT 92–100
[2021-12-17 03:38] LABS: Amphetamine Screen Urine Negative (Negative); Barbiturate Screen Urine Negative (Negative); Benzodiazepines Screen Urine Negative (Negative); Cannabinoid Screen Urine Negative (Negative); Cocaine Screen Urine Negative (Negative); Methadone Screen Urine Negative (Negative); Opiate Screen Urine Negative (Negative); Phencyclidine Screen Urine Negative (Negative)
[2021-12-17 05:34] LABS: Basophils Absolute Auto 0.1 K/mm3 (0.0-0.1); Basophils Percent Auto 1.1 % (0.2-1.2); Eosinophils Absolute Auto 0.1 K/mm3 (0-0.3); Eosinophils Percent Auto 1.1 % (0-4.4); Hematocrit 40.3 % (42.0-52.0); Hemoglobin 12.8 g/dL (14.0-18.0); Immature Granulocyte Percent A 1.1 % (0-0.5); Lymphocytes Absolute Auto 1.79 K/mm3 (0.9-3.2); Lymphocytes Percent Auto 20.3 % (18.3-44.2); Mean Corpuscular HGB Conc 31.8 g/dl (32-36); Mean Corpuscular Hemoglobin 30.3 pg (26-34); Mean Corpuscular Volume 95.5 fl (80-100); Mean Platelet Volume 10.1 fl (7.4-10.4); Monocytes Absolute Auto 0.9 K/mm3 (0.1-0.6); Monocytes Percent Auto 10.4 % (2.6-8.5); Neutrophils Absolute Auto 5.8 K/mm3 (1.3-6.7); Platelet Count Result 359 k/mm3 (150-375); Red Blood Count 4.22 M/mm3 (4.6-6.20); Red Cell Distribution Width 13.1 % (11.5-14.5); White Blood Count 8.8 K/mm3 (4.5-10.0)
[2021-12-17] MEDS: THIAMINE 500 MG/NS 100 ML 500 MG/100 ML BAG 200 MG IVPB ×3 (05:38→20:32)
[2021-12-17 05:54] LABS: Alanine Aminotransferase 26 U/L (6-50); Albumin Level 4.3 g/dL (3.5-5.1); Alkaline Phosphatase 128 U/L (38-126); Anion Gap 8 mmol/L (8-16); Aspartate Amino Transferase 27 U/L (17-59); Bilirubin,Total 0.4 mg/dL (0.2-1.3); Blood Urea Nitrogen 27 mg/dL (9-20); Calcium 9.9 mg/dL (8.4-10.2); Carbon Dioxide 28 mmol/L (22-30); Chloride 104 mmol/L (98-107); Estimated CRCL calculation 61 ml/min; Estimated Glomerular Filt Rate > 60; Glucose 97 mg/dL (65-110); Potassium 3.7 mmol/L (3.4-5.0); Sodium 140 mmol/L (137-145)
--- NOTE | 2021-12-17 08:32 | PM.IMPN ---
Progress Note: A&P Assessment and Plan (1) Altered mental status: Qualifiers: Altered mental status type: unspecified Qualified Code(s): R41.82 - Altered mental status, unspecified Code(s): R41.82 - Altered mental status, unspecified Status: Acute Assessment and Plan: MRI unremarkable for any acute abnormality, full neuro consult pending Will check a thiamine level and treat with IV thiamine for possible Wernicke encephalopathy despite no history of alcohol use due to significant cachexia, depression and no other obvious, treatable cause of his AMS and the low risk of thiamine administration EEG pending, started on Keppra by Neurology (2) Chronic anticoagulation: Code(s): Z79.01 - [facility] (current) use of anticoagulants Status: Acute Assessment and Plan: Continue rivaroxaban for history of right IJ thrombus. (3) Non-small cell lung cancer metastatic to brain: Code(s): C34.90 - Malignant neoplasm of unspecified part of unspecified bronchus or lung; C79.31 - Secondary malignant neoplasm of brain Status: Acute Assessment and Plan: Active lung nodules for non-small cell lung cancer noted, patient has refused all treatments (4) Hypertension: Code(s): I10 - Essential (primary) hypertension Status: Acute Assessment and Plan: Stable (5) Burst fracture of lumbar vertebra: Qualifiers: Encounter type: sequela Fracture type: closed Qualified Code(s): S32.001S - Stable burst fracture of unspecified lumbar vertebra, sequela Code(s): S32.001A - Stable burst fracture of unspecified lumbar vertebra, initial encounter for closed fracture Status: Acute Assessment and Plan: Stable Plan DVT prophylaxis with SCDs GI prophylaxis with PPI Code status full code Subjective Date/time seen: 12/17/21 08:32 Interval history: symptoms unchanged. Some worsening of combativeness and agitation noted overnight. No fevers. Review of Systems Review of Systems: ROS unobtainable: Yes unobtainable due to mental status Exam Narrative: General: No acute distress, alert and oriented to self and situation only, short-term memory changes noted, cachectic HEENT: Atraumatic, normocephalic, mucous membranes moist CV: Regular rate and rhythm, S1, S2 Lungs: Clear to auscultation bilaterally, no rales or crackles noted, no wheezes, good air entry Abdomen: Soft, nontender, nondistended Extremities: Significant muscle wasting noted in all 4 extremities Skin: No rashes noted, no lesions or wounds seen Objective Data Vital Signs Vital Signs: Vital Signs - 24 hr 12/16/21 14:00 12/16/21 15:26 12/16/21 12:00 Temperature 98.2 F Pulse Rate 83 85 107 H Respiratory Rate 14 Blood Pressure 127/83 Pulse Oximetry 98 Oxygen Delivery 12/16/21 16:00 12/16/21 22:39 12/16/21 20:00 Temperature 97.7 F Pulse Rate 85 90 80 Respiratory Rate 16 Blood Pressure 116/71 Pulse Oximetry 91 Oxygen Delivery 12/16/21 20:00 12/17/21 00:00 12/17/21 04:00 Temperature Pulse Rate 71 77 Respiratory Rate Blood Pressure Pulse Oximetry Oxygen Delivery Room Air 12/17/21 07:01 12/17/21 08:00 Temperature 97.7 F Pulse Rate 73 73 Respiratory Rate 14 Blood Pressure 111/72 Pulse Oximetry 98 Oxygen Delivery Intake/Output Intake/Output: Intake & Output 12/14/21 12/15/21 12/16/21 12/17/21 23:59 23:59 23:59 23:59 Intake Total 720 400 Balance 720 400 Meds/Results Medications: Active Medications Generic Name Dose Route Start Last Admin Trade Name Ricq PRN Reason Stop Dose Admin Acetaminophen 325 mg 12/15/21 23:30 Acetaminophen 325 Mg Tablet PO Q6H PRN Pain 1-3 Hydrocodone Bitart/Acetaminophen 1 tab 12/15/21 23:30 Hydrocodone/Acetaminophen (*Crx) 5-325 Mg Tablet PO Q6-8H PRN Pain 4-6 Amlodipine Besylate 5 mg 12/16/21 09:00
[2021-12-17] MEDS: RIVAROXABAN 20 MG TABLET PO (09:15)
[2021-12-17] MEDS: PANTOPRAZOLE 40 MG TABLET PO (09:15)
[2021-12-17] MEDS: LABETALOL HCL 100 MG TABLET PO (09:15)
[2021-12-17] MEDS: amLODIPine BESYLATE 5 MG TABLET PO (09:15)
[2021-12-17] MEDS: QUEtiapine FUMARATE 12.5 MG TABLET PO ×2 (14:30→19:50)
--- NOTE | 2021-12-17 14:50 | P.NEURO_ITS ---
Neurology EEG Report General Information Date of Study: 12/17/21 TEST eeg DIAGNOSIS altered mental status CONDITION OF RECORDING awake drowsy and sleep EEG NUMBER [id number] CLINICAL HISTORY Patient is in hospital due to altered mental status. History of lymphoma with chemotherapy but in remission at this particular time EEG DESCRIPTION background rhythm consists of low to medium voltage 5 to 7 hertz per 2nd theta activity admixed with 3 to 4 hertz per 2nd delta activity and bihemispheric low- voltage beta activity. Hyperventilation not done photic stimulation not done. Non paroxysmal. Nonfocal. Non lateralizing. IMPRESSION Abnormal record due to the absence of the normal background rhythm and due to the presence of excessive amount of theta and delta activity. These abnormali ties are suggestive of organic a metabolic encephalopathy or postictal state. clinical correlation recommended.
[2021-12-17] MEDS: levETIRAcetam 500 MG TABLET PO ×2 (17:10→19:50)
[2021-12-17 20:11] LABS: Glucose Point of Care 110 mg/dl (65-105)
[2021-12-18] VITALS (8 sets, daily range): BP systolic 96–114; BP diastolic 69–70; PULSE 70–91; RESP 12–16; TEMP 36.6–36.8; O2SAT 99–100
[2021-12-18] MEDS: THIAMINE 500 MG/NS 100 ML 500 MG/100 ML BAG 200 MG IVPB ×2 (05:07→15:20)
--- NOTE | 2021-12-18 09:52 | PC.NURSE ---
Pt refusing lab draw and medications until family arrives.
[2021-12-18] MEDS: amLODIPine BESYLATE 5 MG TABLET PO (10:56)
[2021-12-18] MEDS: RIVAROXABAN 20 MG TABLET PO (10:56)
[2021-12-18] MEDS: LABETALOL HCL 100 MG TABLET PO (10:56)
[2021-12-18] MEDS: levETIRAcetam 500 MG TABLET PO ×2 (10:56→20:59)
[2021-12-18] MEDS: PANTOPRAZOLE 40 MG TABLET PO (10:56)
[2021-12-18 11:15] LABS: Basophils Absolute Auto 0.1 K/mm3 (0.0-0.1); Basophils Percent Auto 1.1 % (0.2-1.2); Eosinophils Absolute Auto 0.2 K/mm3 (0-0.3); Hematocrit 39.4 % (42.0-52.0); Hemoglobin 12.7 g/dL (14.0-18.0); Immature Granulocyte Absolute 0.03 K/mm3 (0.00-0.031); Immature Granulocyte Percent A 0.4 % (0-0.5); Lymphocytes Percent Auto 23.7 % (18.3-44.2); Mean Corpuscular HGB Conc 32.2 g/dl (32-36); Mean Corpuscular Volume 96.1 fl (80-100); Mean Platelet Volume 9.6 fl (7.4-10.4); Monocytes Absolute Auto 0.8 K/mm3 (0.1-0.6); Neutrophils Absolute Auto 5.4 K/mm3 (1.3-6.7); Neutrophils Percent Auto 63.8 % (45.5-73.1); Platelet Count Result 352 k/mm3 (150-375); Red Cell Distribution Width 12.9 % (11.5-14.5); White Blood Count 8.4 K/mm3 (4.5-10.0)
[2021-12-18 11:26] LABS: Alanine Aminotransferase 40 U/L (6-50); Albumin Level 4.2 g/dL (3.5-5.1); Alkaline Phosphatase 121 U/L (38-126); Anion Gap 6 mmol/L (8-16); Aspartate Amino Transferase 41 U/L (17-59); Bilirubin,Total 0.5 mg/dL (0.2-1.3); Blood Urea Nitrogen 19 mg/dL (9-20); Calcium 9.8 mg/dL (8.4-10.2); Carbon Dioxide 29 mmol/L (22-30); Chloride 104 mmol/L (98-107); Estimated CRCL calculation 57 ml/min; Estimated Glomerular Filt Rate > 60; Glucose 116 mg/dL (65-110); Sodium 139 mmol/L (137-145)
--- NOTE | 2021-12-18 13:22 | WPDNEUROPN ---
Progress Note: A&P Assessment and Plan (1) Seizure disorder: Code(s): G40.909 - Epilepsy, unspecified, not intractable, without status epilepticus Status: Acute (2) Altered mental status: Qualifiers: Altered mental status type: unspecified Qualified Code(s): R41.82 - Altered mental status, unspecified Code(s): R41.82 - Altered mental status, unspecified Status: Acute (3) Chronic anticoagulation: Code(s): Z79.01 - detention (current) use of anticoagulants Status: Acute (4) Non-small cell lung cancer metastatic to brain: Code(s): C34.90 - Malignant neoplasm of unspecified part of unspecified bronchus or lung; C79.31 - Secondary malignant neoplasm of brain Status: Acute (5) History of craniotomy: Code(s): Z98.890 - Other specified postprocedural states Status: Acute (6) Neuropathy: Code(s): G62.9 - Polyneuropathy, unspecified Status: Acute Subjective Date/time seen: 12/18/21 13:22 Interval history: follow-up for 60 years old right-handed male admitted to the [facility] 1. Carcinoma of the lung 2. Recent ground level fall with burst fracture of vertebra 3. 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 Family's questions they want to pursue with the hospice care with full neuro code status. All the pros and cons discussed he can be referred to hospice but they are also planning to move to [place] say there will be no problem in driving through. Considering the focal lesion in the brain Keppra can be started 500 mg twice a day Review of Systems Review of Systems: All systems reviewed & are unremarkable except as noted in HPI and below Exam Const: General: cooperative and no acute distress Nutritional Appearance: thin and underweight Orientation/consciousness: oriented to person and oriented to place HENMT: Head: normocephalic Ears: hearing grossly normal bilaterally Face/Nose/Sinus: Normal external nose present Face and sinus: normal facial exam Mouth: Yes Normal oral and palatal mucosa present Eyes: General: appearance normal, both eyes and all related structures Visual Ceja: normal visual ceja by confrontation Alignment and Position: alignment normal Periorbital: periorbital findings normal Eyelids: eyelids normal Conjunctivae: conjunctivae normal Cornea: corneas normal Pupils: Equal, round and reactive pupils present EOM: EOMs intact bilaterally Neck: Neck: full ROM Resp: Effort & Inspection: able to speak in complete sentences Auscultation: clear to auscultation bilaterally Cardio: Jugular venous distension: no JVD Rate: regular rate Rhythm: regular rhythm Skin: General skin exam: no rashes or lesions noted Neuro: General: oriented to person and oriented to place Cranial nerves: Yes CN's II-XII intact bilaterally Cognition (Neuro): abnormal cognition Speech: normal speech Motor exam (neuro): Pronator motor function not present, No tremor noted, Normal motor muscle tone present throughout, Motor abnormalities not present and
--- NOTE | 2021-12-18 13:38 | PM.IMPN ---
Progress Note: A&P Assessment and Plan (1) Altered mental status: Qualifiers: Altered mental status type: unspecified Qualified Code(s): R41.82 - Altered mental status, unspecified Code(s): R41.82 - Altered mental status, unspecified Status: Acute Assessment and Plan: MRI unremarkable for any acute abnormality, neurology consulted. Thiamine level checked which is pending. On IV thiamine for possible Wernicke's encephalopathy. No reported history of alcohol use. EEG with absence of normal background rhythm and presence of excess amount of theta and delta activity suggestive of organic metabolic encephalopathy or postictal state. 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 (3) Non-small cell lung cancer metastatic to brain: Code(s): C34.90 - Malignant neoplasm of unspecified part of unspecified bronchus or lung; C79.31 - Secondary malignant neoplasm of brain Status: Acute Assessment and Plan: Active lung nodules for non-small cell lung cancer noted, patient has refused all treatments (4) Hypertension: Code(s): I10 - Essential (primary) hypertension Status: Acute Assessment and Plan: Stable (5) Burst fracture of lumbar vertebra: Qualifiers: Encounter type: sequela Fracture type: closed Qualified Code(s): S32.001S - Stable burst fracture of unspecified lumbar vertebra, sequela Code(s): S32.001A - Stable burst fracture of unspecified lumbar vertebra, initial encounter for closed fracture Status: Acute Assessment and Plan: Stable Plan DVT prophylaxis with SCDs GI prophylaxis with PPI Code status full code Subjective Date/time seen: 12/18/21 13:38 Interval history: No overnight events. Refused his labs this morning. Denies any new complaints. Reviewed his chart. His been diagnosed with metastatic non-small cell lung cancer was treated with chemotherapy in the past. Presented with altered mental status. Review of Systems Review of Systems: All systems reviewed & are unremarkable except as noted in HPI and below Exam Narrative: General: No acute distress, alert and oriented to self and situation only, short-term memory changes noted, cachectic HEENT: Atraumatic, normocephalic, mucous membranes moist CV: Regular rate and rhythm, S1, S2 Lungs: Clear to auscultation bilaterally, no rales or crackles noted, no wheezes, good air entry Abdomen: Soft, nontender, nondistended Extremities: Significant muscle wasting noted in all 4 extremities Skin: No rashes noted, no lesions or wounds seen Objective Data Vital Signs Vital Signs: Vital Signs - 24 hr 12/17/21 14:00 12/17/21 16:00 12/17/21 19:33 Temperature 97.8 F 97.6 F Pulse Rate 70 79 86 Respiratory Rate 16 18 Blood Pressure 101/71 128/74 Pulse Oximetry 100 92 Oxygen Delivery 12/17/21 20:00 12/17/21 20:00 12/18/21 00:00 Temperature Pulse Rate 82 70 Respiratory Rate Blood Pressure Pulse Oximetry Oxygen Delivery Room Air 12/18/21 10:56 12/18/21 08:00 12/18/21 08:00 Temperature Pulse Rate 81 75 Respiratory Rate Blood Pressure Pulse Oximetry Oxygen Delivery Room Air Intake/Output Intake/Output: Intake & Output 12/15/21 12/16/21 12/17/21 12/18/21 23:59 23:59 23:59 23:59 Intake Total 720 920 580 Balance 720 920 580 Meds/Results Medications: Active Medications Generic Name Dose Route Start Last Admin Trade Name Freq PRN Reason Stop Dose Admin Acetaminophe
--- NOTE | 2021-12-18 16:49 | PC.NURSE ---
Patient very unsteady on feet even with assistance, refusing gait belt and/or walker. Becomes aggressive and impulsive when asked to use the equipment. Demanding to be walked to the bathroom. Can get to restrom with 1-2 assist but gait is very shuffled.
[2021-12-18] MEDS: QUEtiapine FUMARATE 12.5 MG TABLET PO (20:59)
[2021-12-19] VITALS (10 sets, daily range): BP systolic 98–117; BP diastolic 62–75; PULSE 78–95; RESP 16–18; TEMP 36.6–36.8; O2SAT 97–100
[2021-12-19] MEDS: THIAMINE 500 MG/NS 100 ML 500 MG/100 ML BAG 200 MG IVPB ×3 (06:00→21:35)
[2021-12-19 06:06] LABS: Basophils Absolute Auto 0.1 K/mm3 (0.0-0.1); Basophils Percent Auto 1.1 % (0.2-1.2); Eosinophils Absolute Auto 0.2 K/mm3 (0-0.3); Eosinophils Percent Auto 2.5 % (0-4.4); Hematocrit 37.7 % (42.0-52.0); Hemoglobin 12.3 g/dL (14.0-18.0); Immature Granulocyte Absolute 0.03 K/mm3 (0.00-0.031); Immature Granulocyte Percent A 0.4 % (0-0.5); Lymphocytes Absolute Auto 1.44 K/mm3 (0.9-3.2); Lymphocytes Percent Auto 17.8 % (18.3-44.2); Mean Corpuscular HGB Conc 32.6 g/dl (32-36); Mean Corpuscular Hemoglobin 31.1 pg (26-34); Mean Corpuscular Volume 95.2 fl (80-100); Mean Platelet Volume 10.3 fl (7.4-10.4); Monocytes Absolute Auto 0.7 K/mm3 (0.1-0.6); Monocytes Percent Auto 8.9 % (2.6-8.5); Neutrophils Absolute Auto 5.6 K/mm3 (1.3-6.7); Neutrophils Percent Auto 69.3 % (45.5-73.1); Platelet Count Result 322 k/mm3 (150-375); Red Blood Count 3.96 M/mm3 (4.6-6.20); Red Cell Distribution Width 12.8 % (11.5-14.5); White Blood Count 8.1 K/mm3 (4.5-10.0)
[2021-12-19 06:17] LABS: Alanine Aminotransferase 83 U/L (6-50); Albumin Level 3.7 g/dL (3.5-5.1); Alkaline Phosphatase 125 U/L (38-126); Anion Gap 6 mmol/L (8-16); Aspartate Amino Transferase 70 U/L (17-59); Bilirubin,Total 0.4 mg/dL (0.2-1.3); Blood Urea Nitrogen 25 mg/dL (9-20); Calcium 9.7 mg/dL (8.4-10.2); Carbon Dioxide 27 mmol/L (22-30); Chloride 104 mmol/L (98-107); Estimated CRCL calculation 57 ml/min; Estimated Glomerular Filt Rate > 60; Glucose 105 mg/dL (65-110); Potassium 4.1 mmol/L (3.4-5.0); Sodium 137 mmol/L (137-145)
[2021-12-19] MEDS: PANTOPRAZOLE 40 MG TABLET PO (10:03)
[2021-12-19] MEDS: RIVAROXABAN 20 MG TABLET PO (10:03)
[2021-12-19] MEDS: amLODIPine BESYLATE 5 MG TABLET PO (10:03)
[2021-12-19] MEDS: LABETALOL HCL 100 MG TABLET PO (10:04)
[2021-12-19] MEDS: levETIRAcetam 500 MG TABLET PO ×2 (10:04→21:35)
[2021-12-19] MEDS: ACETAMINOPHEN 325 MG TABLET PO (10:17)
[2021-12-19 13:06] LABS: PCP NEGATIVE ng/mL (<25)
--- NOTE | 2021-12-19 13:35 | PC.NURSE ---
On 12/19/21, the student, [Keisha Alvarado], provided care and completed [facility] documentation on this patient. I have reviewed the student's documentation and agree with the findings.
--- NOTE | 2021-12-19 14:43 | PM.IMPN ---
Progress Note: A&P Assessment and Plan (1) Altered mental status: Qualifiers: Altered mental status type: unspecified Qualified Code(s): R41.82 - Altered mental status, unspecified Code(s): R41.82 - Altered mental status, unspecified Status: Acute Assessment and Plan: MRI unremarkable for any acute abnormality, neurology consulted. Thiamine level checked which is pending. On IV thiamine for possible Wernicke's encephalopathy. No reported history of alcohol use. EEG with absence of normal background rhythm and presence of excess amount of theta and delta activity suggestive of organic metabolic encephalopathy or postictal state. 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 for possible seizure Which will be continued With several comorbidities and underlying metastatic lung cancer hospice enrollment done. 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 (3) Non-small cell lung cancer metastatic to brain: Code(s): C34.90 - Malignant neoplasm of unspecified part of unspecified bronchus or lung; C79.31 - Secondary malignant neoplasm of brain Status: Acute Assessment and Plan: Active lung nodules for non-small cell lung cancer noted, patient has refused all treatments (4) Hypertension: Code(s): I10 - Essential (primary) hypertension Status: Acute Assessment and Plan: Stable (5) Burst fracture of lumbar vertebra: Qualifiers: Encounter type: sequela Fracture type: closed Qualified Code(s): S32.001S - Stable burst fracture of unspecified lumbar vertebra, sequela Code(s): S32.001A - Stable burst fracture of unspecified lumbar vertebra, initial encounter for closed fracture Status: Acute Assessment and Plan: Stable Plan DVT prophylaxis with SCDs GI prophylaxis with PPI Code status full code Subjective Date/time seen: 12/19/21 14:43 Interval history: no new complaints. Plan for hospice. Arrangements being done. Will be going to [place] with with his family members. Review of Systems Review of Systems: All systems reviewed & are unremarkable except as noted in HPI and below Exam Narrative: General: No acute distress, alert and oriented to self and situation only, short-term memory changes noted, cachectic HEENT: Atraumatic, normocephalic, mucous membranes moist CV: Regular rate and rhythm, S1, S2 Lungs: Clear to auscultation bilaterally, no rales or crackles noted, no wheezes, good air entry Abdomen: Soft, nontender, nondistended Extremities: Significant muscle wasting noted in all 4 extremities Skin: No rashes noted, no lesions or wounds seen Objective Data Vital Signs Vital Signs: Vital Signs - 24 hr 12/18/21 16:00 12/18/21 20:00 12/18/21 21:08 Temperature 98 F Pulse Rate 90 90 81 Respiratory Rate 16 12 Blood Pressure 114/70 Pulse Oximetry 99 100 Oxygen Delivery Room Air 12/18/21 20:00 12/19/21 00:00 12/19/21 05:57 Temperature 98.3 F Pulse Rate 87 82 91 Respiratory Rate 16 Blood Pressure 117/75 Pulse Oximetry 100 Oxygen Delivery 12/19/21 04:00 12/19/21 08:00 12/19/21 10:04 Temperature Pulse Rate 82 86 86 Respiratory Rate Blood Pressure Pulse Oximetry Oxygen Delivery 12/19/21 08:20 12/19/21 12:00 12/19/21 13:47 Temperature 98.2 F Pulse Rate 88 88 Respiratory Rate 18 Blood Pressure 98/68 L Pulse Oximetry 99 Oxygen Delivery Room Air Intake/Output Intake/Output: Intake & Output 12/16/21 12/17/21 12/18/21 12/19/21 23:59 23:59 23:59 23:59 Intake Total 720 920
[2021-12-19] MEDS: QUEtiapine FUMARATE 12.5 MG TABLET PO (21:35)
[2021-12-20 02:59] VITALS: BP 116/68; PULSE 73; RESP 18; TEMP 36.4; O2SAT 100
[2021-12-20] MEDS: THIAMINE 500 MG/NS 100 ML 500 MG/100 ML BAG 200 MG IVPB (06:42)
[2021-12-20 08:00] VITALS: PULSE 73; RESP 18; O2SAT 100
--- NOTE | 2021-12-20 08:35 | PM.DS ---
DS: Admitting Diagnosis Discharge Date 12/20/2021 Admitting Diagnosis altered mental status DS: Discharge Diagnosis Discharge Diagnosis (1) Altered mental status: Qualifiers: Altered mental status type: unspecified Qualified Code(s): R41.82 - Altered mental status, unspecified Code(s): R41.82 - Altered mental status, unspecified Status: Acute (2) Chronic anticoagulation: Code(s): Z79.01 - longterm (current) use of anticoagulants Status: Acute (3) Non-small cell lung cancer metastatic to brain: Code(s): C34.90 - Malignant neoplasm of unspecified part of unspecified bronchus or lung; C79.31 - Secondary malignant neoplasm of brain Status: Acute (4) Hypertension: Code(s): I10 - Essential (primary) hypertension Status: Acute (5) Burst fracture of lumbar vertebra: Qualifiers: Encounter type: sequela Fracture type: closed Qualified Code(s): S32.001S - Stable burst fracture of unspecified lumbar vertebra, sequela Code(s): S32.001A - Stable burst fracture of unspecified lumbar vertebra, initial encounter for closed fracture Status: Acute DS: Summary Hospital Course Hospital Course: # altered mental status: MRI unremarkable for any acute abnormality, neurology consulted. Thiamine level checked which is pending.Was started? On IV thiamine for possible Wernicke's encephalopathy. No reported history of alcohol use. EEG with absence of normal background rhythm and presence of excess amount of theta and delta activity suggestive of organic metabolic encephalopathy or postictal state. 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 for possible seizure? Which will be continued With several comorbidities and underlying metastatic lung cancer hospice enrollment done. he is getting transferred to [facility] by his family / Relatives where hospice team will continue to follow. 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 # non-small cell lung cancer metastatic to brain: Active lung nodules for non-small cell lung cancer noted, patient has refused all treatments Hospice Enrolled # hypertension: Stable # History of burst fracture of lumbar vertebra: Stable # DVT prophylaxis with Xarelto #GI prophylaxis with PPI #Code status full code Time Spent with Patient Time attestation: Total time spent providing and/or coordinating discharge services: 40 minutes Exam Narrative: General: No acute distress, alert and oriented to self and situation only, short-term memory changes noted, cachectic HEENT: Atraumatic, normocephalic, mucous membranes moist CV: Regular rate and rhythm, S1, S2 Lungs: Clear to auscultation bilaterally, no rales or crackles noted, no wheezes, good air entry Abdomen: Soft, nontender, nondistended Extremities: Significant muscle wasting noted in all 4 extremities Skin: No rashes noted, no lesions or wounds seen DS: Data Data Completed and Pending Labs on day of discharge: Labs from last 24 hours 12/17/21 03:14 Phencyclidine (PCP) Negative Drugs of Abuse Screen See note Procedures/Treatments: Neurology EEG Report General Information Date of Study: 12/17/21 TEST eeg DIAGNOSIS ?altered mental status CONDITION OF RECORDING ?awake drowsy and sleep EEG NUMBER [id number] CLINICAL HISTORY ? Patient is in hospital due to altered mental status.? History of lymphoma with chemotherapy but in remission at this particular time EEG DESCRIPTION ?background rhythm consists of low to medium voltage 5 to 7 hertz per 2nd theta activity admixed with 3 to 4 hertz per 2nd delta activity and bihemispheric low-voltage beta activity.? Hyperventilation not done photic stim
[2021-12-20 09:17] VITALS: PULSE 73
[2021-12-20] MEDS: levETIRAcetam 500 MG TABLET PO (09:17)
[2021-12-20] MEDS: amLODIPine BESYLATE 5 MG TABLET PO (09:17)
[2021-12-20] MEDS: QUEtiapine FUMARATE 12.5 MG TABLET PO (09:17)
[2021-12-20] MEDS: LABETALOL HCL 100 MG TABLET PO (09:17)
[2021-12-20] MEDS: RIVAROXABAN 20 MG TABLET PO (09:17)
[2021-12-20] MEDS: PANTOPRAZOLE 40 MG TABLET PO (09:17)
[2021-12-20 15:21] LABS: Amphetamines NEGATIVE; Marijuana Metabolites NEGATIVE
[2021-12-20 15:22] LABS: Barbiturates NEGATIVE; Benzodiazepines NEGATIVE; Cocaine Metabolites NEGATIVE
== END 2021-12-20 09:55 | disposition hospice, home (50) | DRG 54 ==
LOC: ANHED 17:45 → ANH2MED 18:43
PROVIDERS: Emergency Medicine; Physician Assistant; Student in an Organized Health Care Education/Training Program; Admitting Provider Family Medicine; Emergency Provider Emergency Medicine; PCP Family Medicine; Visit Provider Internal Medicine
DX: C79.31 Secondary malignant neoplasm of brain (principal); G93.41 Metabolic encephalopathy; E51.2 Wernicke's encephalopathy; C34.90 Malignant neoplasm of unspecified part of unspecified bronchus or lung; G40.89 Other seizures; S32.001A Stable burst fracture of unspecified lumbar vertebra, initial encounter for closed fracture; Z68.1 Body mass index [BMI] 19.9 or less, adult; R64 Cachexia; F32.A Depression, unspecified; W18.30XA Fall on same level, unspecified, initial encounter; K21.9 Gastro-esophageal reflux disease without esophagitis; I10 Essential (primary) hypertension; G62.9 Polyneuropathy, unspecified; Z66 Do not resuscitate; Z98.890 Other specified postprocedural states; Z79.01 Long term (current) use of anticoagulants; Z86.718 Personal history of other venous thrombosis and embolism; Z86.73 Personal history of transient ischemic attack (TIA), and cerebral infarction without residual deficits; Z87.891 Personal history of nicotine dependence
CPT/HCPCS: 36415; 70450; 70553; 71045; 71250; 74176; 80048; 80053; 80307; 81001; 82140; 82607; 82746; 82948; 83605; 83735; 84425; 84443; 84484; 85025; 85027; 85610; 85652; 85730; 86140; 93005; 95816; 96365; 96366; 99285; A9270; A9577; G0378; J3411